=== PATIENT | female | born 1965 | race Two or more races ===

== ENCOUNTER → 2018-12-26 | Outpatient (CLI) | payer OTHER | END | disposition home or self-care (01) | LOC: NUCLEAR 07:30 | DX: E21.0 Primary hyperparathyroidism (principal) | CPT/HCPCS: 78072; A9500 ==

== ENCOUNTER → 2019-02-23 | Outpatient (CLI) | payer OTHER | END | disposition home or self-care (01) | LOC: SONOGRAMA 07:21 | DX: E04.1 Nontoxic single thyroid nodule (principal) ==